=== PATIENT | female | born 1955 | race African-American/Black ===

== ENCOUNTER 2016-08-04 17:18 | Emergency (ER) | payer MEDICARE, OTHER ==
[2016-08-04 18:04] VITALS: TEMP 98.9
[2016-08-04] MEDS ORDERED: MECLIZINE 12.5 MG TAB PO STA (18:33)
[2016-08-04] MEDS ORDERED: ONDANSETRON 4 MG/2 ML VIAL IVP STA (18:33)
[2016-08-04] MEDS ORDERED: SODIUM CHLORIDE 0.9% 1,000 ML IV STA (18:33)
[2016-08-04] MEDS ORDERED: METOCLOPRAMIDE 5 MG/ML 2 ML VIAL IVP STA (18:34)
[2016-08-04] MEDS ORDERED: diphenhydrAMINE 50 MG/ML 1 ML VIAL IVP STA (18:34)
--- NOTE | 2016-08-04 18:50 | ED ---
Dizziness HPI - General Chief Complaint: Dizziness Stated Complaint: Dizziness Time Seen by Provider: 08/04/16 18:21 Source: patient, RN notes reviewed Mode of arrival: wheelchair - History of Present Illness Initial Comments: Patient is a 60-year-old female presenting to the with chief complaint of dizziness with certain eye movements. Patient reports that she was sent to receive x-rays prior primary care physician of her coccyx and she is having pain and patient's primary care provider was concerned that she had strained or broke her coccyx. Patient reports that while she was in the x-ray suite she started to become dizzy when she laid down. Patient reports as if the room is entirely spinning. She states that she does not feel lightheaded. Patient reports that she feels as if the room is spinning. She states that she has a history of a pacemaker due to poor ejection fraction after multiple rounds of chemotherapy over 10 years ago. Patient reports that because she has a pacemaker she is concerned that she maybe felt a buzz and it went off today. She denies any specific chest pain. She does report that she feels somewhat nauseated. She states that she has no abdominal pain, chest pain or shortness of breath. She denies any diaphoresis. She states she is a nonsmoker. He does have family history of heart disease. - Related Data Home Medications Medication Instructions Recorded Confirmed Atorvastatin [Lipitor] 40 mg PO HS 04/09/14 08/04/16 Atenolol [Tenormin] 25 mg PO DAILY 12/01/14 08/04/16 Cyclobenzaprine [Flexeril] 10 mg PO QID PRN 05/07/15 08/04/16 Ranitidine HCl 150 mg PO TID PRN 09/07/15 08/04/16 Ergocalciferol (Vitamin D2) 50,000 unit PO MO 08/04/16 08/04/16 [Vitamin D2] HYDROcodone/APAP 10-325MG [[place] 1 tab PO Q6H PRN 08/04/16 08/04/16 10-325] Levothyroxine Sodium [Synthroid] 200 mcg PO DAILY 08/04/16 08/04/16 Losartan [Cozaar] 25 mg PO DAILY 08/04/16 08/04/16 Rivaroxaban [Xarelto] 20 mg PO DAILY 08/04/16 08/04/16 Previous Rx's Medication Instructions Recorded Meclizine [Antivert] 12.5 mg PO Q6H #12 tablet 08/04/16 Ondansetron [Zofran] 4 mg PO Q12HR PRN #10 tab 08/04/16 Allergies Allergy/AdvReac Type Severity Reaction Status Date / Time nitrous oxide [Nitrous Oxide] Allergy Severe Anaphylaxis Verified 08/04/16 19:06 latex Allergy Unknown Rash/Hives/ Verified 08/04/16 19:06 Itching/Bli ster bee pollen Allergy Rash/Hives Verified 08/04/16 19:06 Coconut Allergy Rash/Hives Verified 08/04/16 19:06 coconut oil Allergy Swelling Verified 08/04/16 19:06 influenza virus vaccine, Allergy SEVERE Verified 08/04/16 19:06 specific VOMITING-PASSED [influenza virus OUT vacc,specific] Latex, Natural Rubber Allergy Rash/Hives/ Verified 08/04/16 19:06 SWELLING ,SHORTNESS OF BREATH venom-honey bee Allergy Swelling Verified 08/04/16 19:06 [bee venom (honey bee)] insect bites Allergy Swelling Uncoded 09/07/15 16:57 Review of Systems ROS Statement: Those systems with pertinent positive or pertinent negative responses have been documented in the HPI. ROS Other: All systems not noted in ROS Statement are negative. Past Medical History Past Medical History: Cancer, Hyperlipidemia, Neurologic Disorder, Osteoarthritis (OA), Pneumonia, Thyroid Disorder Additional Past Medical History / Comment(s): PT STATES HAS BEEN HAVING PMB OFF AND ON FOR PAST 3 MONTHS. migraines, hx ulcer, "fibroid uterus", breast cancer -2004 HAD CHEMO, cervical cancer History of Any Multi-Drug Resistant Organisms: None Reported Past Surgical History: AICD, Hysterectomy, Pacemaker Additional Past Surgical History / Comment(s): LEFT masectomy, thyroidectomy, TURMOR REMOVED FROM BACK Past Anesthesia/Blood Transfusion Reactions: No Reported Reaction, Previous Problems w/ Anesthesia Additional Past Anesthesia/Blood Transfusion Reaction / Comment(s): TRANSFERED TO ICU FOR OBSERVATION-"WAS TOLD THEY HAD TO RESTART HER HEART" HAD [facility] FOR THYROID SURGERY-AROUND 1991 HAD SURGERY SINCE WITH NO PROBLEM" Type of Cardiac Device: AICD Device Placement Date:: 12/18/14 Past Psychological History: No Psychological Hx Reported Smoking Status: Former smoker Past Alcohol Use History: None Reported Past Drug Use History: None Reported - Past Family History Mother Family Medical History: Cancer Sister(s) Family Medical History: Cancer General Exam - General Exam Comments Initial Comments: Patient is a well-appearing pleasant 60-year-old female. She does not appear to be in any acute distress. General appearance: alert, in no apparent distress Head exam: Present: atraumatic, normocephalic, normal inspection Eye exam: Present: normal appearance, PERRL, EOMI, other (Patient reports dizziness with vertical eye movements.). Absent: scleral icterus, conjunctival injection, periorbital swelling ENT exam: Present: normal exam, mucous membranes moist, TM's normal bilaterally (Mild fluid in the right TM.) Neck exam: Present: normal inspection. Absent: tenderness, meningismus, lymphadenopathy Respiratory exam: Present: normal lung sounds bilaterally. Absent: respiratory distress, wheezes, rales, rhonchi, stridor Cardiovascular Exam: Present: regular rate, normal rhythm, normal heart sounds. Absent: systolic murmur, diastolic murmur, rubs, gallop, clicks GI/Abdominal exam: Present: soft, normal bowel sounds. Absent: distended, tenderness, guarding, rebound, rigid Extremities exam: Present: normal inspection, full ROM, normal capillary refill. Absent: tenderness, pedal edema, joint swelling, calf tenderness Back exam: Present: normal inspection Neurological exam: Present: alert, oriented X3, CN II-XII intact Psychiatric exam: Present: normal affect, normal mood Skin exam: Present: warm, dry, intact, normal color. Absent: rash Course Vital Signs 08/04/16 08/04/16 08/04/16 18:00 19:04 20:27 Temperature 98.9 F Pulse Rate 91 95 92 Respiratory 18 16 16 Rate Blood Pressure 147/88 157/87 157/87 O2 Sat by Pulse 100 100 97 Oximetry Medical Decision Making - Medical Decision Making Patient is a 60-year-old female with chief complaint of one hour of dizziness and feeling the room spinning. She also reports that she felt a buzz in her chest and she is concerned that her pacemaker went off. Patient does have a [employer] pacemaker. Multiple attempts were done to call [employer] states that they have the pacemaker red however they've been unsuccessful. Patient's EKG does show normal sinus rhythm and no evidence of ST elevation or T-wave inversion time. She denies any specific chest pain. Patient was given meclizine, Reglan and Benadryl for dizziness and nausea. And labs are obtained and are all negative. Patient reports her dizziness has subsided after medications. Patient states she wants to go home at this time. She plans to follow up with PCP. I discussed that it is unlikely that pacemaker went off, as the sensation she described is not typical for a pacemaker firing. Patient understands treatment plan and will comply. Return parameters discussed. I discussed this case with Dr. Morrell, and he agrees it is related to vertigo and not cardiac related. Patient will be dsicharged at this time. - Lab Data Result diagrams: 08/04/16 19:08 08/04/16 19:08 Lab Results 08/04/16 08/04/16 08/04/16 Range/Units 19:08 19:08 19:08 WBC 5.3 (3.8-10.6) k/uL RBC 3.72 L (3.80-5.40) m/uL Hgb 11.7 (11.4-16.0) gm/dL Hct 37.5 (34.0-46.0) % MCV 100.9 H (80.0-100.0) fL MCH 31.4 (25.0-35.0) pg MCHC 31.1 (31.0-37.0) g/dL RDW 16.6 H (11.5-15.5) % Plt Count 361 (150-450) k/uL Neutrophils % 60 % Lymphocytes % 31 % Monocytes % 4 % Eosinophils % 1 % Basophils % 1 % Neutrophils # 3.2 (1.3-7.7) k/uL Lymphocytes # 1.7 (1.0-4.8) k/uL Monocytes # 0.2 (0-1.0) k/uL Eosinophils # 0.0 (0-0.7) k/uL Basophils # 0.0 (0-0.2) k/uL Hypochromasia Slight Anisocytosis Slight Macrocytosis Slight PT 10.1 (9.0-12.0) sec INR 1.0 (<1.1) APTT 22.7 (22.0-30.0) sec Sodium 142 (137-145) mmol/L Potassium 4.6 (3.5-5.1) mmol/L Chloride 102 (98-107) mmol/L Carbon Dioxide 32 H (22-30) mmol/L Anion Gap 8 mmol/L BUN 20 H (7-17) mg/dL Creatinine 1.41 H (0.52-1.04) mg/dL Est GFR (MDRD) Af Amer 46 (>60 ml/min/1.73 sqM) Est GFR (MDRD) Non-Af 38 (>60 ml/min/1.73 sqM) Glucose 92 (74-99) mg/dL Calcium 9.4 (8.4-10.2) mg/dL Magnesium 1.7 (1.6-2.3) mg/dL Total Bilirubin 0.4 (0.2-1.3) mg/dL AST 25 (14-36) U/L ALT 39 (9-52) U/L Alkaline Phosphatase 151 H (38-126) U/L Total Creatine Kinase (30-135) U/L CK-MB (CK-2) (0.0-2.4) ng/mL CK-MB (CK-2) Rel Index Troponin I (0.000-0.034) ng/mL Total Protein 7.5 (6.3-8.2) g/dL Albumin 3.9 (3.5-5.0) g/dL Urine Color Urine Appearance (Clear) Urine pH (5.0-8.0) Ur Specific [place] (1.001-1.035) Urine Protein (Negative) Urine Glucose (UA) (Negative) Urine Ketones (Negative) Urine Blood (Negative) Urine Nitrate (Negative) Urine Bilirubin (Negative) Urine Urobilinogen (<2.0) mg/dL Ur Leukocyte Esterase (Negative) Urine RBC (0-5) /hpf Urine WBC (0-5) /hpf Ur Squamous Epith Cells (0-4) /hpf Urine Bacteria (None) /hpf Urine Mucus (None) /hpf 08/04/16 08/04/16 Range/Units 19:08 19:08 WBC (3.8-10.6) k/uL RBC (3.80-5.40) m/uL Hgb (11.4-16.0) gm/dL Hct (34.0-46.0) % MCV (80.0-100.0) fL MCH (25.0-35.0) pg MCHC (31.0-37.0) g/dL RDW (11.5-15.5) % Plt Count (150-450) k/uL Neutrophils % % Lymphocytes % % Monocytes % % Eosinophils % % Basophils % % Neutrophils # (1.3-7.7) k/uL Lymphocytes # (1.0-4.8) k/uL Monocytes # (0-1.0) k/uL Eosinophils # (0-0.7) k/uL Basophils # (0-0.2) k/uL Hypochromasia Anisocytosis Macrocytosis PT (9.0-12.0) sec INR (<1.1) APTT (22.0-30.0) sec Sodium (137-145) mmol/L Potassium (3.5-5.1) mmol/L Chloride (98-107) mmol/L Carbon Dioxide (22-30) mmol/L Anion Gap mmol/L BUN (7-17) mg/dL Creatinine (0.52-1.04) mg/dL Est GFR (MDRD) Af Amer (>60 ml/min/1.73 sqM) Est GFR (MDRD) Non-Af (>60 ml/min/1.73 sqM) Glucose (74-99) mg/dL Calcium (8.4-10.2) mg/dL Magnesium (1.6-2.3) mg/dL Total Bilirubin (0.2-1.3) mg/dL AST (14-36) U/L ALT (9-52) U/L Alkaline Phosphatase (38-126) U/L Total Creatine Kinase 66 (30-135) U/L CK-MB (CK-2) 0.6 (0.0-2.4) ng/mL CK-MB (CK-2) Rel Index 0.9 Troponin I <0.012 (0.000-0.034) ng/mL Total Protein (6.3-8.2) g/dL Albumin (3.5-5.0) g/dL Urine Color Yellow Urine Appearance Cloudy H (Clear) Urine pH 6.5 (5.0-8.0) Ur Specific [place] 1.023 (1.001-1.035) Urine Protein Negative (Negative) Urine Glucose (UA) Negative (Negative) Urine Ketones Negative (Negative) Urine Blood Negative (Negative) Urine Nitrate Negative (Negative) Urine Bilirubin Negative (Negative) Urine Urobilinogen <2.0 (<2.0) mg/dL Ur Leukocyte Esterase Large H (Negative) Urine RBC 4 (0-5) /hpf Urine WBC 16 H (0-5) /hpf Ur Squamous Epith Cells 11 H (0-4) /hpf Urine Bacteria Occasional H (None) /hpf Urine Mucus Rare H (None) /hpf 08/04/16 19:23 EKG shows normal sinus rhythm. There is evidence of left ventricular hypertrophy. Ventricular rate 90 bpm. [place] interval [id number] seconds. QRS duration 84 ms. QT/QTc is 368/450 ms. - Radiology Data Radiology results: report reviewed CT brain was reviewed to be negative for any acute process. Chest x-ray was also negative for any acute process. Disposition Clinical Impression: Vertigo Disposition: HOME SELF-CARE Condition: Good Instructions: Dizziness (ED) Additional Instructions: Patient instructed to follow-up with primary care provider tomorrow. Return to the [facility] if any alarming signs or symptoms occur. Take nausea and Dizziness medication as prescribed. Prescriptions: Meclizine [Antivert] 12.5 mg PO Q6H #12 tablet Ondansetron [Zofran] 4 mg PO Q12HR PRN #10 tab PRN Reason: Nausea Referrals: Nita Billings MD [Primary Care Provider] - 1-2 days Time of Disposition: 20:47
[2016-08-04 19:20] VITALS: BP 157/87; RESP 16
[2016-08-04 19:29] LABS: Anisocytosis Slight; Basophils % (A) 1 %; CH 31.6; CHCM 31.5; Eosinophils % (A) 1 %; HCT 37.5 % (34.0-46.0); HDW 2.69; HGB 11.7 gm/dL (11.4-16.0); Hypochromasia Slight; Luc # (Auto) 0.15; Luc % (Auto) 3; Lymphocytes # (A) 1.7 k/uL (1.0-4.8); Lymphocytes % (A) 31 %; MCH 31.4 pg (25.0-35.0); MCHC 31.1 g/dL (31.0-37.0); MCV 100.9 fL (80.0-100.0); Macrocytosis Slight; Mean Platelet Volume 6.6; Monocytes # (A) 0.2 k/uL (0-1.0); Monocytes % (A) 4 %; Neutrophils # (A) 3.2 k/uL (1.3-7.7); Neutrophils % (A) 60 %; RBC 3.72 m/uL (3.80-5.40); RDW 16.6 % (11.5-15.5); WBC 5.3 k/uL (3.8-10.6); WBC (Perox) 5.26
[2016-08-04 19:37] LABS: Appearance,Urine Cloudy (Clear); Bacteria,Urine Occasional /hpf; Bilirubin,Urine Negative (Negative); Calcium 9.4 mg/dL (8.4-10.2); Glucose,Urine (UA) Negative (Negative); Ketones,Urine Negative (Negative); Leukocyte Esterase,Urine Large (Negative); Magnesium 1.7 mg/dL (1.6-2.3); Mucus,Urine Rare /hpf; Nitrite,Urine Negative (Negative); PH, Urine 6.5 (5.0-8.0); Particle Count 3027; Potassium 4.6 mmol/L (3.5-5.1); Protein,Urine Negative (Negative); RBC,Urine 4 /hpf (0-5); Specific Gravity,Urine 1.023 (1.001-1.035); Squamous Epithelial Cell,Urine 11 /hpf (0-4); Total Bilirubin 0.4 mg/dL (0.2-1.3); Total Protein 7.5 g/dL (6.3-8.2); UA Billing (MACRO vs. MICRO) MICRO; Urobilinogen,Urine <2.0 mg/dL (<2.0); WBC,Urine 16 /hpf (0-5)
[2016-08-04 19:41] LABS: Creatine Kinase 66 U/L (30-135)
--- NOTE | 2016-08-04 19:42 | XR ---
EXAMINATION TYPE: XR chest 2V DATE OF EXAM: 08/04/2016 7:37 PM COMPARISON: 01/08/2015 HISTORY: Dizziness and weakness TECHNIQUE: Frontal and lateral views of the chest are obtained. FINDINGS: There is no heart failure nor confluent pneumonic infiltrate. Costophrenic angles are flavia r. There is a right axillary pacemaker with the lead tip in the right ventricle. There are chest lead s. Bony thorax is intact. IMPRESSION: No active cardiopulmonary disease. There is improved inspiration compared to old exam.
[2016-08-04 19:45] LABS: Partial Thromboplastin Time 22.7 sec (22.0-30.0); Prothrombin Time 10.1 sec (9.0-12.0)
[2016-08-04 19:53] LABS: Creatine Kinase MB 0.6 ng/mL (0.0-2.4); Troponin I <0.012 ng/mL (0.000-0.034)
--- NOTE | 2016-08-04 20:26 | CT ---
EXAMINATION TYPE: CT brain wo con DATE OF EXAM: 08/04/2016 8:21 PM COMPARISON: 12/01/2014 HISTORY: dizziness and headache CT DLP: 1012.7 mGycm Automated exposure control for dose reduction was used. FINDINGS: Ventricles and sulci are are normal for age. There is no mass effect or midline shift. There is no si gn of intracranial hemorrhage. The calvarium is intact. IMPRESSION: Negative unenhanced head CT scan. No change compared to old exam.
[2016-08-04 20:29] VITALS: PULSE 92
== END 2016-08-04 21:04 | disposition home or self-care (01) ==
LOC: EC 17:18
DX: R42 Dizziness and giddiness (principal); E78.5 Hyperlipidemia, unspecified; E07.9 Disorder of thyroid, unspecified; Z95.810 Presence of automatic (implantable) cardiac defibrillator; Z79.01 Long term (current) use of anticoagulants; Z79.899 Other long term (current) drug therapy; Z92.21 Personal history of antineoplastic chemotherapy; Z85.41 Personal history of malignant neoplasm of cervix uteri; Z87.891 Personal history of nicotine dependence; Z88.7 Allergy status to serum and vaccine; Z91.040 Latex allergy status
CPT/HCPCS: 99284; 96374; 96375; 36415; 93005; 80053; 82550; 82553; 83735; 84484; 85025; 85610; 85730; 81001; 71020; 70450; J1200; J2765; 72220

== ENCOUNTER → 2016-08-04 | Outpatient (CLI) | payer MEDICARE, OTHER ==
--- NOTE | 2016-08-04 17:21 | XR ---
EXAMINATION TYPE: XR sacrum coccyx DATE OF EXAM: 08/04/2016 5:14 PM COMPARISON: NONE HISTORY: Pain. Fall 4 weeks ago. TECHNIQUE: 3 views FINDINGS: Sacral and coccygeal segments have fairly normal alignment. Sacroiliac joints appear normal . I see no fracture. IMPRESSION: Negative sacrum and coccyx exam.
== END | disposition home or self-care (01) ==
LOC: RADXRMAIN 16:57
PROVIDERS: ATTEND Family Medicine
DX: M53.3 Sacrococcygeal disorders, not elsewhere classified (principal)
CPT/HCPCS: 72220

== ENCOUNTER → 2016-11-09 | Outpatient (CLI) | payer MEDICARE, OTHER | END | disposition home or self-care (01) | LOC: LABWHC1 16:01 | PROVIDERS: ATTEND Nurse Practitioner Family | DX: J02.9 Acute pharyngitis, unspecified (principal); R52 Pain, unspecified; R68.83 Chills (without fever) | CPT/HCPCS: 87502 ==

== ENCOUNTER 2017-04-13 18:49 | Emergency (ER) | payer MEDICARE, OTHER ==
[2017-04-13 18:56] VITALS: RESP 18
[2017-04-13] MEDS ORDERED: SODIUM CHLORIDE 0.9% 500 ML IV STA (19:28)
--- NOTE | 2017-04-13 19:48 | ED ---
General Adult HPI - General Chief complaint: Urogenital Stated complaint: Blood in urine-cancer pt Time Seen by Provider: 04/13/17 19:16 Source: patient Mode of arrival: ambulatory Limitations: no limitations - History of Present Illness Initial comments: 61-year-old female patient presents to emergency department today for evaluation of suprapubic cramping and pain with urination. States she is also having some bilateral flank pain with radiation down to her lower back. She states that this has been going on over the last couple of days. Patient is also reporting hematuria. Has had urinary tract infections with kidney infections in the past. She states she has also been feeling generally weak and achy. She did have some nausea today. Patient does have a history significant for lymphoma with her last chemo treatment being 24 days ago, she states she is due for her next treatment this coming Wednesday. Patient denies any recent rash, fever, chills, shortness breath, chest pain, vomiting, diarrhea, constipation, back pain, numbness, tingling, dizziness, weakness, headache, visual changes, or any other complaints. - Related Data Home Medications Medication Instructions Recorded Confirmed Atorvastatin [Lipitor] 40 mg PO HS 04/09/14 04/13/17 Atenolol [Tenormin] 25 mg PO DAILY 12/01/14 04/13/17 Cyclobenzaprine [Flexeril] 10 mg PO TID PRN 05/07/15 04/13/17 Ranitidine HCl 150 mg PO BID PRN 09/07/15 04/13/17 HYDROcodone/APAP 10-325MG [[place] 1 tab PO Q4H PRN 08/04/16 04/13/17 10-325] Levothyroxine Sodium [Synthroid] 200 mcg PO DAILY 08/04/16 04/13/17 Losartan [Cozaar] 12.5 mg PO DAILY 08/04/16 04/13/17 Rivaroxaban [Xarelto] 20 mg PO DAILY 08/04/16 04/13/17 Bisacodyl [Dulcolax] 5 mg PO DAILY 04/13/17 04/13/17 Cetirizine HCl [Zyrtec] 10 mg PO DAILY PRN 04/13/17 04/13/17 Cholecalciferol [Vitamin D3] 800 unit PO DAILY 04/13/17 04/13/17 Fluticasone Nasal [place] [Flonase 1 spray EA NOSTRIL DAILY PRN 04/13/17 04/13/17 Nasal [place]] Meclizine [Antivert] 12.5 mg PO Q6H PRN 04/13/17 04/13/17 Montelukast [Singulair] 10 mg PO DAILY PRN 04/13/17 04/13/17 Ondansetron HCl [Zofran] 8 mg PO TID PRN 04/13/17 04/13/17 Polyethylene Glycol 3350 [Miralax] 17 gm PO BID 04/13/17 04/13/17 metFORMIN HCL [Glucophage] 500 mg PO BID 04/13/17 04/13/17 Previous Rx's Medication Instructions Recorded Ciprofloxacin HCl [Cipro] 500 mg PO Q12HR #14 tablet 04/13/17 Allergies Allergy/AdvReac Type Severity Reaction Status Date / Time nitrous oxide [Nitrous Oxide] Allergy Severe Anaphylaxis Verified 04/13/17 19:57 latex Allergy Unknown Rash/Hives/ Verified 04/13/17 19:57 Itching/Bli ster bee pollen Allergy Rash/Hives Verified 04/13/17 19:57 Coconut Allergy Rash/Hives Verified 04/13/17 19:57 coconut oil Allergy Swelling Verified 04/13/17 19:57 Latex, Natural Rubber Allergy Rash/Hives/ Verified 04/13/17 19:57 SWELLING ,SHORTNESS OF BREATH venom-honey bee Allergy Swelling Verified 04/13/17 19:57 [bee venom (honey bee)] influenza virus vaccine, AdvReac SEVERE Verified 04/13/17 19:57 specific VOMITING-PASSED [influenza virus OUT vacc,specific] insect bites Allergy Swelling Uncoded 04/13/17 18:56 Review of Systems ROS Statement: Those systems with pertinent positive or pertinent negative responses have been documented in the HPI. ROS Other: All systems not noted in ROS Statement are negative. Past Medical History Past Medical History: Cancer, Hyperlipidemia, Neurologic Disorder, Osteoarthritis (OA), Pneumonia, Thyroid Disorder Additional Past Medical History / Comment(s): PT STATES HAS BEEN HAVING PMB OFF AND ON FOR PAST 3 MONTHS. migraines, hx ulcer, "fibroid uterus", breast cancer -2005 HAD CHEMO, cervical cancer, lymphatic CA History of Any Multi-Drug Resistant Organisms: None Reported Past Surgical History: AICD, Hysterectomy, Pacemaker Additional Past Surgical History / Comment(s): LEFT masectomy, thyroidectomy, TUMOR REMOVED FROM BACK Past Anesthesia/Blood Transfusion Reactions: No Reported Reaction, Previous Problems w/ Anesthesia Additional Past Anesthesia/Blood Transfusion Reaction / Comment(s): TRANSFERED TO ICU FOR OBSERVATION-"WAS TOLD THEY HAD TO RESTART HER HEART" HAD [facility] FOR THYROID SURGERY-AROUND 1991 HAD SURGERY SINCE WITH NO PROBLEM" Type of Cardiac Device: AICD Device Placement Date:: 12/18/14 Past Psychological History: No Psychological Hx Reported Smoking Status: Former smoker Past Alcohol Use History: None Reported Past Drug Use History: None Reported - Past Family History Mother Family Medical History: Cancer Sister(s) Family Medical History: Cancer General Exam Limitations: no limitations General appearance: alert, in no apparent distress Eye exam: Present: normal appearance, PERRL, EOMI. Absent: scleral icterus, conjunctival injection, periorbital swelling ENT exam: Present: normal exam, normal oropharynx, mucous membranes moist Neck exam: Present: normal inspection. Absent: tenderness, meningismus, lymphadenopathy Respiratory exam: Present: normal lung sounds bilaterally. Absent: respiratory distress, wheezes, rales, rhonchi, stridor Cardiovascular Exam: Present: regular rate, normal rhythm, normal heart sounds. Absent: systolic murmur, diastolic murmur, rubs, gallop, clicks GI/Abdominal exam: Present: soft, normal bowel sounds. Absent: distended, tenderness, guarding, rebound, rigid Back exam: Present: normal inspection, CVA tenderness (R), CVA tenderness (L) Neurological exam: Present: alert, oriented X3, CN II-XII intact Psychiatric exam: Present: normal affect, normal mood Skin exam: Present: warm, dry, intact, normal color. Absent: rash Course Vital Signs 04/13/17 04/13/17 04/13/17 18:53 20:09 21:00 Temperature 98.8 F 98.8 F Pulse Rate 104 H 105 H 100 Respiratory 18 18 18 Rate Blood Pressure 132/79 132/84 121/86 O2 Sat by Pulse 99 97 98 Oximetry 04/13/17 04/13/17 21:36 22:11 Temperature 97.7 F Pulse Rate 102 H 107 H Respiratory 18 18 Rate Blood Pressure 121/91 125/77 O2 Sat by Pulse 97 97 Oximetry Medical Decision Making - Medical Decision Making 61-year-old female patient did present today for evaluation of suprapubic cramping, left flank pain, and concerns for urinary tract infection. Lab work was reviewed, white blood cell count was negative. Hemoglobin was 9.4, however patient states that with her current chemo regimen this is a good number for her. Urinalysis did show a cloudy appearance, 1+ protein, moderate blood, large leukocyte esterase, greater than 182 white blood cells. Patient is feeling better, and does feel that she can be treated outpatient. We will give her a dose of IV Rocephin here in the department and discharge her home with a prescription for Cipro. She does have her next chemo treatment on Wednesday she states that they will repeat labs at that time and admit her to the hospital. I did instruct her to return here immediately for any new, worsening, or concerning symptoms. I instructed her to return here immediately for any developing a fever, nausea, or vomiting. I instructed her to follow-up with her primary care physician for recheck in 1-2 days. She verbalizes understanding and agrees with this plan. - Lab Data Result diagrams: 04/13/17 19:31 04/13/17 19:31 Lab Results 04/13/17 04/13/17 04/13/17 Range/Units 19:31 19:31 19:31 WBC 4.0 (3.8-10.6) k/uL RBC 2.77 L (3.80-5.40) m/uL Hgb 9.4 L (11.4-16.0) gm/dL Hct 29.8 L (34.0-46.0) % MCV 107.6 H (80.0-100.0) fL MCH 34.1 (25.0-35.0) pg MCHC 31.7 (31.0-37.0) g/dL RDW 17.6 H (11.5-15.5) % Plt Count 156 (150-450) k/uL Neutrophils % (Manual) 28 % Band Neutrophils % 1 % Lymphocytes % (Manual) 66 % Monocytes % (Manual) 6 % Eosinophils % (Manual) 1 % Neutrophils # (Manual) 1.10 L (1.3-7.7) k/uL Lymphocytes # (Manual) 2.64 (1.0-4.8) k/uL Monocytes # (Manual) 0.24 (0-1.0) k/uL Eosinophils # (Manual) 0.04 (0-0.7) k/uL Nucleated RBCs 3 H (0-0) /100 WBC Manual Slide Review Performed Polychromasia Present Hypochromasia Moderate Anisocytosis Slight Anisocytosis (manual) Present Macrocytosis Marked Sodium 143 (137-145) mmol/L Potassium 4.2 (3.5-5.1) mmol/L Chloride 107 (98-107) mmol/L Carbon Dioxide 24 (22-30) mmol/L Anion Gap 12 mmol/L BUN 13 (7-17) mg/dL Creatinine 0.70 (0.52-1.04) mg/dL Est GFR (MDRD) Af Amer >60 (>60 ml/min/1.73 sqM) Est GFR (MDRD) Non-Af >60 (>60 ml/min/1.73 sqM) Glucose 117 H (74-99) mg/dL Plasma Lactic Acid Jayce 1.4 (0.7-2.0) mmol/L Calcium 8.2 L (8.4-10.2) mg/dL Total Bilirubin 0.3 (0.2-1.3) mg/dL AST 22 (14-36) U/L ALT 33 (9-52) U/L Alkaline Phosphatase 139 H (38-126) U/L Total Protein 7.1 (6.3-8.2) g/dL Albumin 3.7 (3.5-5.0) g/dL Urine Color Urine Appearance (Clear) Urine pH (5.0-8.0) Ur Specific [place] (1.001-1.035) Urine Protein (Negative) Urine Glucose (UA) (Negative) Urine Ketones (Negative) Urine Blood (Negative) Urine Nitrite (Negative) Urine Bilirubin (Negative) Urine Urobilinogen (<2.0) mg/dL Ur Leukocyte Esterase (Negative) Urine RBC (0-5) /hpf Urine WBC (0-5) /hpf 04/13/17 Range/Units 19:31 WBC (3.8-10.6) k/uL RBC (3.80-5.40) m/uL Hgb (11.4-16.0) gm/dL Hct (34.0-46.0) % MCV (80.0-100.0) fL MCH (25.0-35.0) pg MCHC (31.0-37.0) g/dL RDW (11.5-15.5) % Plt Count (150-450) k/uL Neutrophils % (Manual) % Band Neutrophils % % Lymphocytes % (Manual) % Monocytes % (Manual) % Eosinophils % (Manual) % Neutrophils # (Manual) (1.3-7.7) k/uL Lymphocytes # (Manual) (1.0-4.8) k/uL Monocytes # (Manual) (0-1.0) k/uL Eosinophils # (Manual) (0-0.7) k/uL Nucleated RBCs (0-0) /100 WBC Manual Slide Review Polychromasia Hypochromasia Anisocytosis Anisocytosis (manual) Macrocytosis Sodium (137-145) mmol/L Potassium (3.5-5.1) mmol/L Chloride (98-107) mmol/L Carbon Dioxide (22-30) mmol/L Anion Gap mmol/L BUN (7-17) mg/dL Creatinine (0.52-1.04) mg/dL Est GFR (MDRD) Af Amer (>60 ml/min/1.73 sqM) Est GFR (MDRD) Non-Af (>60 ml/min/1.73 sqM) Glucose (74-99) mg/dL Plasma Lactic Acid Jayce (0.7-2.0) mmol/L Calcium (8.4-10.2) mg/dL Total Bilirubin (0.2-1.3) mg/dL AST (14-36) U/L ALT (9-52) U/L Alkaline Phosphatase (38-126) U/L Total Protein (6.3-8.2) g/dL Albumin (3.5-5.0) g/dL Urine Color Yellow Urine Appearance Cloudy H (Clear) Urine pH 6.0 (5.0-8.0) Ur Specific [place] 1.021 (1.001-1.035) Urine Protein 1+ H (Negative) Urine Glucose (UA) Negative (Negative) Urine Ketones Negative (Negative) Urine Blood Moderate H (Negative) Urine Nitrite Negative (Negative) Urine Bilirubin Negative (Negative) Urine Urobilinogen 4.0 (<2.0) mg/dL Ur Leukocyte Esterase Large H (Negative) Urine RBC 2 (0-5) /hpf Urine WBC >182 H (0-5) /hpf Disposition Clinical Impression: Urinary tract infection Disposition: HOME SELF-CARE Condition: Good Instructions: Urinary Tract Infection in Women (ED) Additional Instructions: Increase fluids. Take medications as directed. Repeat urinalysis once medications aren't completely to ensure clearance of infections. Follow-up with her primary care physician for recheck in 1-2 days. Return here immediately for any new, worsening, or concerning symptoms. Prescriptions: Ciprofloxacin HCl [Cipro] 500 mg PO Q12HR #14 tablet Referrals: Nita Billings MD [Primary Care Provider] - 1-2 days Time of Disposition: 21:06
[2017-04-13 20:00] LABS: Anisocytosis Slight; Aty Lym Flag Slight; CH 33.3; CHCM 31.1; HCT 29.8 % (34.0-46.0); HDW 3.05; HGB 9.4 gm/dL (11.4-16.0); Hypochromasia Moderate; MCH 34.1 pg (25.0-35.0); MCHC 31.7 g/dL (31.0-37.0); MCV 107.6 fL (80.0-100.0); Macrocytosis Marked; Mean Platelet Volume 7.5; RBC 2.77 m/uL (3.80-5.40); RDW 17.6 % (11.5-15.5)
[2017-04-13 20:01] LABS: Appearance,Urine Cloudy (Clear); Bilirubin,Urine Negative (Negative); Glucose,Urine (UA) Negative (Negative); Ketones,Urine Negative (Negative); Leukocyte Esterase,Urine Large (Negative); Nitrite,Urine Negative (Negative); Particle Count 2837; Protein,Urine 1+ (Negative); RBC,Urine 2 /hpf (0-5); Specific Gravity,Urine 1.021 (1.001-1.035); UA Billing (MACRO vs. MICRO) MICRO; WBC,Urine >182 /hpf (0-5)
[2017-04-13 20:03] LABS: ALT 33 U/L (9-52); AST 22 U/L (14-36); Alkaline Phosphatase 139 U/L (38-126); Anion Gap 12 mmol/L; Blood Urea Nitrogen 13 mg/dL (7-17); Calcium 8.2 mg/dL (8.4-10.2); Carbon Dioxide 24 mmol/L (22-30); Chloride 107 mmol/L (98-107); Glucose 117 mg/dL (74-99); Non-African American GFR(MDRD) >60 (>60 ml/min/1.73 sqM); Potassium 4.2 mmol/L (3.5-5.1); Sodium 143 mmol/L (137-145); Total Bilirubin 0.3 mg/dL (0.2-1.3); Total Protein 7.1 g/dL (6.3-8.2)
[2017-04-13 20:32] LABS: Add Differential Manual Differential
[2017-04-13 20:40] LABS: Band Neutrophils % 1 %; Manual Review Performed; Nucleated Red Blood Cells 3 /100 WBC (0-0); Polychromasia Present; Total Cells Counted 200
[2017-04-13] MEDS ORDERED: HYDROmorphone 1 MG/ML 1 ML SYRINGE IVP STA (21:07)
[2017-04-13 22:12] VITALS: BP 125/77; PULSE 107; TEMP 97.7
== END 2017-04-13 22:14 | disposition home or self-care (01) ==
LOC: EC 18:49
DX: N39.0 Urinary tract infection, site not specified (principal); E78.5 Hyperlipidemia, unspecified; E07.9 Disorder of thyroid, unspecified; Z85.3 Personal history of malignant neoplasm of breast; Z85.41 Personal history of malignant neoplasm of cervix uteri; Z85.79 Personal history of other malignant neoplasms of lymphoid, hematopoietic and related tissues; Z95.810 Presence of automatic (implantable) cardiac defibrillator; Z90.710 Acquired absence of both cervix and uterus; Z87.891 Personal history of nicotine dependence; Z79.01 Long term (current) use of anticoagulants; Z79.84 Long term (current) use of oral hypoglycemic drugs; Z79.899 Other long term (current) drug therapy; Z88.7 Allergy status to serum and vaccine; Z91.018 Allergy to other foods; Z91.030 Bee allergy status; Z91.040 Latex allergy status; Z91.048 Other nonmedicinal substance allergy status
CPT/HCPCS: 99283 ×2; 96365 ×2; 96375 ×2; 36415; 80053; 83605; 85025; 81001; 87040; 87086; 87077; 87186; J0696; J1170